=== PATIENT | male | born 1995 | race Caucasian/White ===

== ENCOUNTER 2016-06-13 21:29 | Emergency (ER) | payer MEDICAID ==
[2016-06-13 23:55] LABS: AMPHETAMINE QUAL UR NONE DETECTED (NEG <=1000)
[2016-06-14 05:24] VITALS: BP 120/76
== END 2016-06-14 05:24 | disposition home or self-care (01) ==
LOC: ED 21:29
PROVIDERS: Emergency Medicine
DX: F10.229 Alcohol dependence with intoxication, unspecified (principal); R20.2 Paresthesia of skin; G89.29 Other chronic pain; M54.2 Cervicalgia; M54.9 Dorsalgia, unspecified; M79.606 Pain in leg, unspecified; G62.9 Polyneuropathy, unspecified; I10 Essential (primary) hypertension; Z88.0 Allergy status to penicillin; Z72.0 Tobacco use
CPT/HCPCS: 80307; J1885; J3411; J3475; J3490; J7030